=== PATIENT | female | born 1965 | race Two or more races ===

== ENCOUNTER 2023-08-06 14:30 | Day surgery (SDC) | payer BC, OTHER ==
[~2023-08-06] VITALS: Ht 167.6 cm; Wt 64.5 kg
[2023-08-06 16:07] LABS: Basophils # (auto) 0 10 ^3/uL (0-0.2); Basophils % (auto) 0.5 % (0.0-2.0); Eosinophils # (auto) 0.1 10 ^3/uL (0-0.8); Eosinophils % (auto) 1.7 % (0.0-7.0); Hematocrit 41.8 % (36.0-46.0); Hemoglobin 13.9 g/dL (12.2-16.2); Lymphocytes # (auto) 2.6 10 ^3/uL (0.4-5.4); Mean Corpuscular Hemoglobin 28.4 pg (28.0-32.0); Mean Corpuscular Hgb Conc. 33.2 g/dL (32.0-36.0); Mean Corpuscular Volume 85.5 fL (80.0-100.0); Monocytes # (auto) 0.5 10 ^3/uL (0-1.3); Monocytes % (auto) 5.9 % (0.0-12.0); Neutrophils % (auto) 60.9 % (37.0-80.0); Nucleated Red Blood Cells % 0.1 %; Red Blood Cells 4.89 10^6/uL (4.0-5.20); Red Cell Distribution Width 13.6 % (11.8-14.3); White Blood Cell 8.3 10^3/uL (4.4-10.8)
[2023-08-06] MEDS ORDERED: ceFAZolin 1GM/50ML 50 ML IV ONE (16:19)
[2023-08-06] MEDS ORDERED: fentaNYL CITRATE 100 MCG/2 ML VL ONE (16:19)
[2023-08-06] MEDS ORDERED: PROPOFOL 10 MG/ML 20 ML IV ONE (16:19)
[2023-08-06] MEDS ORDERED: LIDOCAINE W/ EPINEPHRINE 1% 20ML VIAL ONE (16:21)
[2023-08-06] MEDS ORDERED: CONJ ESTROGENS 0.625MG/GM VAG CRM 30GM PV ONE (16:21)
[2023-08-06 16:28] LABS: INR 0.98 (0.9-1.15); Partial Thromboplastin Time 25.4 SEC (24.5-34.5); Prothrombin Time 10.4 sec (9.3-11.8)
[2023-08-06] MEDS ORDERED: MIDAZOLAM HCL 2MG/2ML 2ml VIAL (1mg/ml) ONE (16:30)
[2023-08-06 16:32] LABS: Alanine Aminotransferase 31 U/L (7-40); Albumin 4.4 g/dL (3.2-4.8); Alkaline Phosphatase 85 U/L (46-116); Anion Gap 6 (5-15); Aspartate Aminotransferase 34 U/L (13-40); BUN/Creatinine Ratio 15.2 (10.0-20.0); Blood Urea Nitrogen 12 mg/dL (9-23); Calcium 9.8 mg/dL (8.5-10.1); Carbon Dioxide 29 mmol/L (20-30); Chloride 106 mmol/L (98-107); Glucose 89 mg/dL (74-106); Potassium 3.8 mmol/L (3.5-5.1); Sodium 141 mmol/L (136-145)
[2023-08-06 16:33] LABS: Bilirubin, Total 0.6 mg/dL (0.2-1.0); Total Protein 7.3 g/dL (5.7-8.2)
[2023-08-06] MEDS ORDERED: ONDANSETRON HCL 4 MG/2 ML VIAL ONE (16:56)
[2023-08-06 17:25] VITALS: PULSE 107; RESP 15; TEMP 97.7; O2SAT 96
[2023-08-06] MEDS ORDERED: ONDANSETRON HCL 4 MG/2 ML VIAL IV ONE (17:45)
[2023-08-06] MEDS ORDERED: HYDROmorphone HCL 2 MG/ML VL/or syr ONE (17:47)
[2023-08-06] MEDS: HYDROmorphone HCL 2 MG/ML VL/or syr IV PRN (17:49)
[2023-08-06 17:55] VITALS: BP 126/70; PULSE 86; RESP 16; O2SAT 98
== END 2023-08-06 17:34 | disposition home or self-care (01) ==
LOC: ER 14:30 → SUR 16:00 → ER 16:28 → SUR 17:34
PROVIDERS: ATTEND Urology
DX: T81.31XA Disruption of external operation (surgical) wound, not elsewhere classified, initial encounter (principal); Z79.82 Long term (current) use of aspirin; Z90.710 Acquired absence of both cervix and uterus; Z98.891 History of uterine scar from previous surgery; Z90.89 Acquired absence of other organs; Z79.899 Other long term (current) drug therapy; Z98.890 Other specified postprocedural states; Y83.8 Other surgical procedures as the cause of abnormal reaction of the patient, or of later complication, without mention of misadventure at the time of the procedure
CPT/HCPCS: 12020; 36415; 80053; 85025; 85610; 85730; 86850; 86900; 86901; 96374; 99283; J0690; J1170; J2250; J2405; J2704; J3010